=== PATIENT | female | born 1950 | race Caucasian/White ===

== ENCOUNTER → 2021-02-07 | Outpatient (CLI) | payer MEDICARE, OTHER | LOC: EXRD 13:43 | DX: M81.0 Age-related osteoporosis without current pathological fracture (principal); M85.89 Other specified disorders of bone density and structure, multiple sites | CPT/HCPCS: 77080 ==

== ENCOUNTER 2021-08-20 19:08 | Emergency (ER) | payer MEDICARE, OTHER ==
[2021-08-20 20:26] LABS: HEMOGLOBIN 13.9 gm/dl (12.3-15.3); RED BLOOD COUNT 4.49 M/UL (4.00-5.10); WHITE BLOOD COUNT 10.9 K/UL (4.5-11.0)
[2021-08-20] MEDS ORDERED: AUGMENTIN 500-500 MG PO (22:41)
[2021-08-20] MEDS ORDERED: [UNRECOGNIZED DRUG - OTHER] (22:41)
== END 2021-08-20 23:40 | disposition home or self-care (01) ==
LOC: ER1 19:08
PROVIDERS: Family Medicine
DX: K11.20 Sialoadenitis, unspecified (principal); I12.9 Hypertensive chronic kidney disease with stage 1 through stage 4 chronic kidney disease, or unspecified chronic kidney disease; N18.30 Chronic kidney disease, stage 3 unspecified; Z87.442 Personal history of urinary calculi; Z90.49 Acquired absence of other specified parts of digestive tract
CPT/HCPCS: 70486; 81001; 85025; 85652; 86140; 87086; 99284; J0295

== ENCOUNTER 2021-11-05 10:46 | Emergency (ER) | payer MEDICARE, OTHER ==
[~2021-11-05 10:46] MED LIST: AUGMENTIN 500-500 MG PO; [UNRECOGNIZED DRUG - OTHER]
[2021-11-05] MEDS ORDERED: DELSYM30 MG/5 ML PO (13:18)
== END 2021-11-05 13:50 | disposition home or self-care (01) ==
LOC: ER1 10:46
DX: U07.1 COVID-19 (principal); Z23 Encounter for immunization; I10 Essential (primary) hypertension; Z91.040 Latex allergy status; Z88.5 Allergy status to narcotic agent; I12.9 Hypertensive chronic kidney disease with stage 1 through stage 4 chronic kidney disease, or unspecified chronic kidney disease; N18.30 Chronic kidney disease, stage 3 unspecified
CPT/HCPCS: 0240U; 99283; M0222